=== PATIENT | female | born 1965 | race Two or more races ===

== ENCOUNTER 2020-05-11 14:52 | Emergency (ER) | payer MEDICARE, OTHER ==
[~2020-05-11] VITALS: Ht 152.4 cm; Wt 74.1 kg
[2020-05-11 15:10] VITALS: BP 157/83
--- NOTE | 2020-05-11 15:28 | NUR ---
derrick builder: attempte to room pt, pt in imaging
--- NOTE | 2020-05-11 15:35 | NUR ---
dry goods clerk: pt from lobby to room 26
--- NOTE | 2020-05-11 16:39 | NUR ---
LATE ENTRY, PT MACANESE SPEAKING, UNABLE TO USE CRYACOM DUE TO RAMEZ BEING DOWN. CC OF BACK PAIN FOR TWO YEARS, WORSENING RECENTLY, NUMBNESS TO BOTH LEGS, SWELLING ON LEFT LEG. DENIES ABD PAIN. NO OPEN WOUNDS OR RASH NOTED.
--- NOTE | 2020-05-11 16:45 | NUR ---
PT REPORTS MRI DONE, SHOWING DDD.
[2020-05-11] MEDS ORDERED: KETOROLAC 30 MG/1 ML ONE (16:59)
[2020-05-11] MEDS ORDERED: METHOCARBAMOL 750 MG TABLET ONE (16:59)
[2020-05-11] MEDS ORDERED: KETOROLAC 30 MG/1 ML IM ONE (17:00)
[2020-05-11] MEDS ORDERED: METHOCARBAMOL 750 MG TABLET PO ONE (17:00)
--- NOTE | 2020-05-11 17:45 | NUR ---
pt found walking around in hallways fully dressed. pt requesting to be dc to go home. Candelaria ROJAS aware. Pt given dc paperwork and escorted to dc desk. pt verbalizes understanding of dc instructions.
== END 2020-05-11 18:20 | disposition home or self-care (01) ==
LOC: ED 16:59
DX: S39.012A Strain of muscle, fascia and tendon of lower back, initial encounter (principal); M54.42 Lumbago with sciatica, left side; M54.41 Lumbago with sciatica, right side; M51.36 Other intervertebral disc degeneration, lumbar region; I10 Essential (primary) hypertension; E11.9 Type 2 diabetes mellitus without complications; X58.XXXA Exposure to other specified factors, initial encounter; Y93.89 Activity, other specified; Y92.89 Other specified places as the place of occurrence of the external cause; Y99.8 Other external cause status
CPT/HCPCS: 72110; 96372; 99283; J1885

== ENCOUNTER 2020-06-26 08:10 | Emergency (ER) | payer MEDICARE ==
[~2020-06-26] VITALS: Ht 152.4 cm; Wt 73.2 kg
[2020-06-26 08:16] VITALS: BP 145/85
--- NOTE | 2020-06-26 08:27 | NUR ---
MD AT BEDSIDE EXAMINING PT
[2020-06-26] MEDS ORDERED: METHOCARBAMOL 750 MG TABLET ONE (08:35)
--- NOTE | 2020-06-26 08:39 | NUR ---
MEDICATED NOTED ON MAR
[2020-06-26] MEDS ORDERED: METHOCARBAMOL 750 MG TABLET PO ONE (09:00)
== END 2020-06-26 09:08 | disposition home or self-care (01) ==
LOC: ED 08:24
DX: M54.5 Low back pain (principal); Z76.0 Encounter for issue of repeat prescription; G89.29 Other chronic pain; I10 Essential (primary) hypertension; E11.9 Type 2 diabetes mellitus without complications
CPT/HCPCS: 99283

== ENCOUNTER 2020-09-16 16:08 | Emergency (ER) | payer MEDICARE ==
[~2020-09-16] VITALS: Ht 152.4 cm; Wt 68.0 kg
--- NOTE | 2020-09-16 16:28 | NUR ---
PT TO ROOM, CHANGED INTO GOWN, MONITORS IN PLACE. PT C/O PAIN TO FEET & SWELLING FOR 5 DAYS. PT ALSO C/O LESION ON LOWER BACK LESION FOR 2 MONTHS. CALL LIGHT WITHIN REACH, BED IN LOWEST POSITION, BED RAILS UP X2.
--- NOTE | 2020-09-16 16:37 | NUR ---
ERP AT BS FOR EVAL
--- NOTE | 2020-09-16 16:43 | NUR ---
xray at bs
[2020-09-16 17:03] LABS: MEAN CORPUSCULAR HEMOGLOBIN 23.7 pg (27.0-34.8); MEAN CORPUSCULAR HGB CONC 32.3 g/dL (32.4-35.8); MEAN PLATELET VOLUME 7.9 fL (7.4-10.4); PLATELET COUNT 287 x10^3/uL (130-400); RED BLOOD COUNT 3.68 x10^6/uL (3.82-5.3)
[2020-09-16 17:05] LABS: ALBUMIN 3.4 g/dL (3.4-5.0); ANION GAP 6 mmol/L (5-15); CALCIUM 8.4 mg/dL (8.5-10.1); CHLORIDE 105 mmol/L (98-107)
[2020-09-16 17:10] LABS: ALANINE AMINOTRANSFERASE 32 U/L (12-78); ALKALINE PHOSPHATASE 123 U/L (45-117); BILIRUBIN,TOTAL 0.4 mg/dL (0.2-1.0); CREATININE 0.61 mg/dL (0.55-1.02); TOTAL PROTEIN 7.4 g/dL (6.4-8.2)
[2020-09-16 17:21] LABS: MICROSCOPIC NOT IND
[2020-09-16 17:44] LABS: BAND#(MANUAL) 0.07 x10^3/uL; BANDS%(MANUAL) 1 % (0-7); BASOS#(MANUAL) 0.07 x10^3/uL (0-0.1); BASOS% (MANUAL) 1 % (0-1); EOS#(MANUAL) 0.07 x10^3/uL (0.0-0.4); EOS% (MANUAL) 1 % (1-7); LYMPH#(MANUAL) 2.56 x10^3/uL (1-3.4); LYMPHS% (MANUAL) 36 % (22-44); MONOS#(MANUAL) 0.57 x10^3/uL (0.3-2.7); MONOS% (MANUAL) 8 % (2-9); SEG#(MANUAL) 3.76 x10^3/uL (1.8-6.8); SEGS% (MANUAL) 53 % (42-75)
[2020-09-16 17:45] LABS: ANISOCYTOSIS 1+; HYPOCHROMIA 1+; MICROCYTOSIS 1+
[2020-09-16 17:46] LABS: <PLATELET ESTIMATE> ADEQUATE; <PLT MORPHOLOGY> NORMAL PLT MORPH
--- NOTE | 2020-09-16 18:39 | NUR ---
Patient is resting comfortably in bed. Bed in lowest, rails engaged, call light on lap. Vital Signs within normal limits. WCTM.
[2020-09-16 18:58] VITALS: BP 121/95
--- NOTE | 2020-09-16 19:02 | NUR ---
received report from leatha flannery. transfer of care.
--- NOTE | 2020-09-16 20:04 | NUR ---
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 pt back in room changing getting ready to dc home. pt states she is going to have someone pick her up. pt passed roadtest.
== END 2020-09-16 20:34 | disposition home or self-care (01) ==
LOC: ED 20:25
DX: R60.0 Localized edema (principal); R06.89 Other abnormalities of breathing; I10 Essential (primary) hypertension; E11.9 Type 2 diabetes mellitus without complications
CPT/HCPCS: 36415; 71045; 80053; 81003; 83880; 85025; 93970; 99285